=== PATIENT | male | born 1970 | race Caucasian/White ===

== ENCOUNTER 2017-03-13 08:38 | Emergency (ER) | payer BC ==
[2017-03-13 09:20] VITALS: BP 102/86
--- NOTE | 2017-03-13 09:55 | ED ---
Throat Pain/Nasal Congestion - HPI Summary HPI Summary: Pt presents with sore throat, sinus pressure, PND, cough x 10 days. pt states has been taking OTC decongestants without improvement. Pt reports tactile fever , no chills. Pt states cough productive of yellow sputum. No rash. No POLANCO, vision changes. Pt reports dental pressure from sinuses. Pt's medications reviewed at this visit - History of Current Complaint Chief Complaint: UCRespiratory Time Seen by Provider: 03/13/17 09:43 Hx Obtained From: Patient Onset/Duration: Gradual Onset Severity: Moderate Associated Signs And Symptoms: Positive: Wheezing Cough: Nonproductive - Allergies/Home Medications Allergies/Adverse Reactions: Allergies Allergy/AdvReac Type Severity Reaction Status Date / Time Erythromycin AdvReac Intermediate Vomiting Verified 03/13/17 09:20 Home Medications: Home Medications Daytime/Nighttime Med 2 tab PO Q6H PRN 03/13/17 [History Confirmed 03/13/17] PMH/Surg Hx/FS Hx/Imm Hx Previously Healthy: Yes Endocrine/Hematology History: Denies: Hx Diabetes Respiratory History: Denies: Hx Chronic Obstructive Pulmonary Disease (COPD), Hx Lung Cancer Neurological History: Denies: Hx Transient Ischemic Attacks (TIA) Psychiatric History: Denies: Hx Anxiety - Surgical History Surgery Procedure, Year, and Place: ear tubes; right inguinal 05/2016 Infectious Disease History: No Infectious Disease History: Denies: Traveled Outside the [place] in Last 30 Days - Family History Known Family History: Positive: Hypertension - Social History 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 Negative: Shortness Of Breath All Other Systems Reviewed And Are Negative: Yes Physical Exam Triage Information Reviewed: Yes Vital Signs On Initial Exam: Initial Vitals Temp Pulse Resp BP Pulse Ox 98.8 F 89 16 102/86 99 03/13/17 09:13 03/13/17 09:13 03/13/17 09:13 03/13/17 09:13 03/13/17 09:13 Vital Signs Reviewed: Yes Appearance: Positive: Well-Appearing, No Pain Distress, Well-Nourished Skin: Positive: Warm, Skin Color Reflects Adequate Perfusion Head/Face: Positive: Normal Head/Face Inspection Eyes: Positive: Normal ENT: Positive: Normal ENT inspection, Hearing grossly normal. Negative: TMs normal - scant fluid left ear turbinates inflammed and boggy + tenderness left max sinus +PND Neck: Positive: Supple, Nontender, No Lymphadenopathy Respiratory/Lung Sounds: Positive: Clear to Auscultation, Breath Sounds Present Cardiovascular: Positive: Normal, RRR Abdomen Description: Positive: Nontender, No Organomegaly, Soft Bowel Sounds: Positive: Present Musculoskeletal: Positive: Normal Neurological: Positive: Normal, Sensory/Motor Intact, Alert, Oriented to Person Place, Time Psychiatric: Positive: Normal AVPU Assessment: Alert - [place] Coma Scale Best Eye Response: 4 - Spontaneous Best Motor Response: 6 - Obeys Commands Best Verbal Response: 5 - Oriented Diagnostics - Vital Signs Vital Signs Temp Pulse Resp BP Pulse Ox 03/13/17 09:13 98.8 F 89 16 102/86 99 - Laboratory Lab Statement: Any lab studies that have been ordered have been reviewed, and results considered in the medical decision making process. EENT Course/Dx - Course Course Of Treatment: Pt presents with sinus congestion, PND, cough with wheeze. Pt with inflammed, boggy turbinates and PND. Will give abx. flonase. secretion precaution. return precautions - Diagnoses Provider Diagnoses: Sinusitis Discharge - Discharge Plan Condition: Stable Disposition: HOME Prescriptions: Amoxicillin PO (*) [Amoxicillin 875 MG (*)] 875 mg PO BID #14 tab Fluticasone NASAL * [Flonase *] 2 spray BOTH NARES DAILY #1 spray Patient Education Materials: Rhinosinusitis (ED) Forms: *Work Release Referrals: Non Staff,Doctor [Primary Care Provider] - Additional Instructions: - Stay well hydrated. Drink plenty of non-alcoholic, non-caffinated beverages. - take antibiotics and nasal spray as prescribed. - okay to take over the cough decongestant medications - After you have been on antibiotics for 2 days - change your toothbrush and your pillowcase. These infections are spread by secretions - do NOT share eating or drinking utensils - clean items you share with other people such as cell phones, computer mouse, TV remote, computer tablets, etc - Alternate ibuprofen (Advil, Motrin) 600mg and Tylenol every 3 hours for pain or fever. Take with food. Do NOT take for more than 4-5 days. Call your doctor or return with questions or concerns
== END 2017-03-13 09:55 | disposition home or self-care (01) ==
LOC: UCCORT 08:38
DX: J32.9 Chronic sinusitis, unspecified (principal); Z87.891 Personal history of nicotine dependence; Z88.1 Allergy status to other antibiotic agents
CPT/HCPCS: 99212; G0463

== ENCOUNTER 2018-05-15 10:45 | Emergency (ER) | payer BC ==
[2018-05-15 12:48] VITALS: BP 113/71
--- NOTE | 2018-05-15 13:32 | UC ---
UC General HPI - HPI Summary HPI Summary: 47 yo gentleman c/o progressively worse sinus pain. + drainage [place] in am dark yellow. some cough. Has been taking decongestants. Possible fever. No rash. No GI / issues reported. Hx sinus infection in the past, feels similar. - History of Current Complaint Chief Complaint: UCGeneralIllness Stated Complaint: SINUS COMPLAINT Time Seen by Provider: 05/15/18 13:17 Hx Obtained From: Patient Pain Intensity: 3 - Allergy/Home Medications Allergies/Adverse Reactions: Allergies Allergy/AdvReac Type Severity Reaction Status Date / Time erythromycin base Allergy Vomiting Verified 05/15/18 12:44 Home Medications: Home Medications Cyclobenzaprine TAB* [Flexeril 10 MG TAB*] 10 mg PO BID PRN 05/15/18 [History Confirmed 05/15/18] Pseudoephedrine TAB* [Sudafed TAB*] 30 mg PO Q6H PRN 05/15/18 [History Confirmed 05/15/18] PMH/Surg Hx/FS Hx/Imm Hx Previously Healthy: Yes - see hpi - Surgical History Surgical History: Yes Surgery Procedure, Year, and Place: ear tubes; right inguinal 05/2016 - Family History Known Family History: Positive: None, Hypertension - Social History Alcohol Use: Daily Alcohol Amount: "few beers" Substance Use Type: None Smoking Status (MU): Light Every Day Tobacco Smoker Type: Smokeless Tobacco Length of Time of Smoking/Using Tobacco: 20+ YRS - Immunization History Most Recent Influenza Vaccination: no Most Recent Tetanus Shot: SOMETIME SINCE 2004 Review of Systems All Other Systems Reviewed And Are Negative: Yes Constitutional: Positive: Fatigue Skin: Positive: Negative Eyes: Positive: Negative ENT: Positive: Nasal Discharge, Sinus Congestion, Sinus Pain/Tenderness Respiratory: Positive: Cough Cardiovascular: Positive: Negative Gastrointestinal: Positive: Negative Genitourinary: Positive: Negative Motor: Positive: Negative Neurovascular: Positive: Negative Musculoskeletal: Positive: Negative Neurological: Positive: Negative Psychological: Positive: Negative Is Patient Immunocompromised?: No Physical Exam Triage Information Reviewed: Yes Appearance: Well-Nourished - sitting up. Looks tired, but nad. Vital Signs: Initial Vital Signs Temp 98.4 F 05/15/18 12:40 Pulse 103 05/15/18 12:40 Resp 17 05/15/18 12:40 BP 113/71 05/15/18 12:40 Pulse Ox 98 05/15/18 12:40 Vital Signs Reviewed: Yes Eye Exam: Normal ENT: Positive: Pharyngeal erythema - mild post pharyng redness, uvula midline, Nasal congestion, TM dull, Other - + sinus tenderness, hurts to lean forward. Nasal turbinates red, swollen. Neck exam: Normal Neck: Positive: Supple, Nontender, No Lymphadenopathy Respiratory Exam: Normal Respiratory: Positive: Chest non-tender, Lungs clear, Normal breath sounds, No respiratory distress, No accessory muscle use Cardiovascular Exam: Other - HR 100's. Correlates with radial pulse. Cardiovascular: Positive: Pulses Normal, Brisk Capillary Refill Abdominal Exam: Normal - no c/o abd pain Abdomen Description: Positive: Nontender Musculoskeletal Exam: Normal - gait steady. Neurological Exam: Normal - grossly nonfocal Psychological Exam: Normal - conversing easily and appropriately Skin Exam: Normal - no visible or reported rash Course/Dx - Course Course Of Treatment: Reviewed coa / tx plan. Encourage liquids. Minimize decongestants. Questions as posed answered to the best of my ability. F/[place] with PCP encouraged - [facility] [place] [facility] [place] - Diagnoses Provider Diagnosis: Sinusitis Discharge - Sign-Out/Discharge Documenting (check all that apply): Patient Departure All imaging exams completed and their final reports reviewed: No Studies - Discharge Plan Condition: Stable Disposition: HOME Prescriptions: Amoxicillin/Clavulanate TAB* [Augmentin TAB 875*] 875 mg PO BID #20 tab Patient Education Materials: Sinusitis (ED) Referrals: [facility] [place] [Outside] No Primary Care Phys,NOPCP [Primary Care Provider] - Additional Instructions: Drink plenty of fluids. Minimize caffeine, minimize decongestants. Follow up with a primary care physician when you able. - Billing Disposition and Condition Condition: STABLE Disposition: Home
== END 2018-05-15 13:44 | disposition home or self-care (01) ==
LOC: UCCORT 10:45
DX: J32.9 Chronic sinusitis, unspecified (principal); Z88.1 Allergy status to other antibiotic agents; F17.210 Nicotine dependence, cigarettes, uncomplicated
CPT/HCPCS: 99212; G0463

== ENCOUNTER 2019-03-15 08:05 | Emergency (ER) | payer BC ==
[2019-03-15 08:24] VITALS: BP 120/80
--- NOTE | 2019-03-15 08:41 | UC ---
Respiratory Complaint HPI - HPI Summary HPI Summary: Patient is a healthy 48-year-old male here with sinus congestion. Patient's had 1 week of sinus congestion and his frontal sinuses. Patient has associated nasal congestion, bilateral ear pain, cough. Patient's had no fever, chills, vomiting, diarrhea, difficulty swallowing. Patient went to urgent care on Monday and was started on Flonase and Mucinex. Patient is prone to sinus infections so he is here for an antibiotic prescription Medications reviewed - History of Current Complaint Chief Complaint: UCGeneralIllness Stated Complaint: SINUS COMPLAINT Time Seen by Provider: 03/15/19 08:25 Hx Obtained From: Patient Onset/Duration: Gradual Onset Pain Intensity: 8 - Allergies/Home Medications Allergies/Adverse Reactions: Allergies Allergy/AdvReac Type Severity Reaction Status Date / Time erythromycin base Allergy Vomiting Verified 03/15/19 08:24 Home Medications: Home Medications guaiFENesin [Mucinex] 600 mg PO 03/15/19 [History] PMH/Surg Hx/FS Hx/Imm Hx Previously Healthy: Yes - Surgical History Surgical History: Yes Surgery Procedure, Year, and Place: ear tubes; right inguinal 05/2016 - Family History Known Family History: Positive: None, Hypertension - Social History Alcohol Use: Daily Alcohol Amount: "few beers" Substance Use Type: None Smoking Status (MU): Former Smoker Type: Smokeless Tobacco Length of Time of Smoking/Using Tobacco: 20+ YRS Have You Smoked in the Last Year: No When Did the Patient Quit Smoking/Using Tobacco: "a while ago" - Immunization History Most Recent Influenza Vaccination: no Most Recent Tetanus Shot: SOMETIME SINCE 2004 Review of Systems All Other Systems Reviewed And Are Negative: Yes Constitutional: Negative: Fever, Chills Skin: Negative: Rash Eyes: Negative: Drainage, Eye Redness, Photophobia ENT: Positive: Ear Ache, Nasal Discharge, Sinus Congestion, Sinus Pain/ Tenderness. Negative: Sore Throat Respiratory: Positive: Cough. Negative: Shortness Of Breath Cardiovascular: Negative: Palpitations, Chest Pain Gastrointestinal: Negative: Abdominal Pain, Vomiting, Diarrhea Physical Exam - Summary Physical Exam Summary: Vital Signs Reviewed: Yes A+Ox3, no distress Eyes: Conjunctiva Clear, PERRL. EOM intact and full ENT: Hearing grossly normal TM x 2 clear, moist, uvula midline, no exudate, no erythema. Mild frontal sinus tenderness Neck: Positive: Supple Respiratory: Positive: No respiratory distress, No accessory muscle use + CTA throughout no w/r Cardiovascular: RRR nl s1, s2 no m/r CBT <2 sec abd soft + BS nt/nd no guarding, no distension Musculoskeletal Exam: GUEVARA x 4 without difficulty Strength Intact, ROM Intact Neurological: Positive: Alert, + sensation throughout Psychological: Positive: Normal Response To Family Skin: no rash, no ecchymosis Vital Signs: Initial Vital Signs Temp 98.9 F 03/15/19 08:17 Pulse 88 03/15/19 08:17 Resp 18 03/15/19 08:17 BP 120/80 03/15/19 08:17 Pulse Ox 99 03/15/19 08:17 Respiratory Course/Dx - Course Course Of Treatment: Patient is here with symptoms consistent with sinus congestion. Patient does not meet the clinical criteria for sinus infection signet 2 bacteria. However, patient has had 2 visits to the urgent care this week and is prone to sinus infections. Patient was given a [id number] Augmentin prescription. Patient was educated on symptom treatment. Patient was encouraged. This primary care doctor in the next 1-3 days. - Differential Dx/Diagnosis Provider Diagnosis: Sinus congestion Discharge ED - Sign-Out/Discharge Documenting (check all that apply): Patient Departure All imaging exams completed and their final reports reviewed: No Studies - Discharge Plan Condition: Stable Disposition: HOME Prescriptions: Amoxicillin/Clavulanate TAB* [Augmentin TAB 875*] 875 mg PO BID 10 Days #20 tab Patient Education Materials: Sinusitis (ED) Referrals: No Primary Care Phys,NOPCP [Primary Care Provider] - Additional Instructions: Please start taking Zyrtec every day Please continue your Flonase and Mucinex Please use steam to help loosen the mucus in your nose Please take ibuprofen 600 mg every 6 hours for pain Please fill your antibiotic prescription if you're not feeling better in the next 2-3 days Please return if you have high fever, difficulty breathing, chest pain, any other concerning symptoms - Billing Disposition and Condition Condition: STABLE Disposition: Home
== END 2019-03-15 08:43 | disposition home or self-care (01) ==
LOC: UCCORT 08:05
DX: Z88.1 Allergy status to other antibiotic agents (principal); Z87.891 Personal history of nicotine dependence
CPT/HCPCS: 99212; G0463

== ENCOUNTER 2019-07-10 11:10 | Emergency (ER) | payer BC ==
[2019-07-10 12:20] VITALS: BP 142/76
--- NOTE | 2019-07-10 12:37 | UC ---
Throat Pain/Nasal Shayne HPI - HPI Summary HPI Summary: sinus pain / pressure x 3 weeks nasal congest, green nasal discharge, pnd, no fever, no chills, + dry cough - History of Current Complaint Chief Complaint: UCRespiratory Stated Complaint: CONGESTION Time Seen by Provider: 07/10/19 12:20 Hx Obtained From: Patient Onset/Duration: Gradual Onset, Lasting Weeks - 3, Still Present Severity: Moderate Pain Intensity: 6 Cough: Nonproductive Associated Signs & Symptoms: Positive: Sinus Discomfort, Nasal Discharge. Negative: Fever, Vomiting, Rash - Allergies/Home Medications Allergies/Adverse Reactions: Allergies Allergy/AdvReac Type Severity Reaction Status Date / Time erythromycin base Allergy Vomiting Verified 07/10/19 12:15 PMH/Surg Hx/FS Hx/Imm Hx - Additional Past Medical History Additional PMH: PVC Cardiovascular History: Cardiac Disease - Surgical History Surgical History: Yes Surgery Procedure, Year, and Place: ear tubes; right inguinal 05/2016 - Family History Known Family History: Positive: None, Hypertension - Social History Alcohol Use: Occasionally Alcohol Amount: "few beers" Substance Use Type: None Smoking Status (MU): Former Smoker Type: Smokeless Tobacco Length of Time of Smoking/Using Tobacco: 20+ YRS Have You Smoked in the Last Year: No When Did the Patient Quit Smoking/Using Tobacco: "a while ago" - Immunization History Most Recent Influenza Vaccination: no Most Recent Tetanus Shot: SOMETIME SINCE 2004 Review of Systems All Other Systems Reviewed And Are Negative: Yes Constitutional: Positive: Negative Skin: Positive: Negative Eyes: Positive: Negative ENT: Positive: Sore Throat, Ear Ache, Nasal Discharge, Sinus Congestion, Sinus Pain/Tenderness Respiratory: Positive: Cough Cardiovascular: Positive: Negative Is Patient Immunocompromised?: No Physical Exam Triage Information Reviewed: Yes Appearance: Well-Appearing, No Pain Distress, Well-Nourished Vital Signs: Initial Vital Signs Temp 97.3 F 07/10/19 12:15 Pulse 103 07/10/19 12:15 Resp 16 07/10/19 12:15 BP 142/76 07/10/19 12:15 Pulse Ox 99 07/10/19 12:15 Vital Signs Reviewed: Yes Eye Exam: Normal Eyes: Positive: Conjunctiva Clear ENT: Positive: Normal ENT inspection, Hearing grossly normal, Pharyngeal erythema, Nasal congestion, Nasal drainage, Sinus tenderness Neck: Positive: Supple, Nontender, No Lymphadenopathy Respiratory: Positive: Chest non-tender, Lungs clear, Normal breath sounds Cardiovascular: Positive: RRR, No Murmur, Pulses Normal Throat Pain/Nasal Course/Dx - Differential Dx/Diagnosis Provider Diagnosis: Sinusitis Discharge ED - Sign-Out/Discharge Documenting (check all that apply): Patient Departure All imaging exams completed and their final reports reviewed: No Studies - Discharge Plan Condition: Stable Disposition: HOME Prescriptions: Amoxicillin/Clavulanate TAB* [Augmentin TAB 875*] 875 mg PO BID #20 tab Patient Education Materials: Sinusitis (ED) Referrals: No Primary Care Phys,NOPCP [Primary Care Provider] - If Needed - Billing Disposition and Condition Condition: STABLE Disposition: Home
== END 2019-07-10 12:36 | disposition home or self-care (01) ==
LOC: UCCORT 11:10
DX: J32.9 Chronic sinusitis, unspecified (principal); R05 Cough; J02.9 Acute pharyngitis, unspecified; H92.09 Otalgia, unspecified ear; Z87.891 Personal history of nicotine dependence; Z88.1 Allergy status to other antibiotic agents
CPT/HCPCS: 99212; G0463